=== PATIENT | female | born 1990 | race African-American/Black ===

== ENCOUNTER 2018-11-21 02:25 | Emergency (ER) | payer BC, SELFPAY ==
[2018-11-21 03:02] LABS: Pregu Control Background? CLEAR/WHITE (CLR/WHITE); Pregu Control Bar Appear? YES (CONTROL BAR); Specific Gravity 1.025 (1.002-1.036)
[2018-11-21 03:03] LABS: Pregnancy Test - Urine (BHCG) Negative (Negative)
[2018-11-21 03:07] LABS: #Basophils 0.1 thou/uL (0.0-0.2); #Eosinphils 0.2 thou/uL (0.0-0.7); #Lymphocytes 3.2 thou/uL (1.20-3.40); #Monocytes 0.6 thou/uL (0.11-0.59); #Neutrophils 6.3 thou/uL (1.40-6.50); %Basophils 1.3 % (0.0-1.0); %Eosinophils 1.8 % (0.0-10.0); %Monocytes 5.3 % (0.0-10.0); %Neutrophils 60.6 % (42.0-75.0); Hemoglobin 11.9 g/dL (12.0-16.0); Mean Corpuscular HGB CONC 31.5 g/dL (32.0-36.0); Mean Corpuscular Hemoglobin 26.1 pg (27.0-31.0); Mean Corpuscular Volume 82.8 fL (78.0-98.0); Mean Platelet Volume 8.8 fL (7.4-10.4); Platelet Count 229 thou/uL (130-400); RBC Distribution Width 14.4 % (11.5-14.5); Red Blood Cell (RBC) Count 4.58 mill/uL (4.20-5.40); White Blood Cell (WBC) Count 10.4 thou/uL (4.8-10.8)
[2018-11-21 03:19] LABS: ALT (SGPT) 15 U/L (8-55); AST (SGOT) 15 U/L (5-34); Albumin 4.1 g/dL (3.5-5.0); Alkaline Phosphatase 95 U/L (40-150); Anion Gap 13 mmol/L (10-20); BUN (Urea Nitrogen) 11 mg/dL (7.0-18.7); Bilirubin, Total 0.4 mg/dL (0.2-1.2); CK (CPK) 172 U/L (29-168); Calc. Creatinine Clearance 0 mL/min (70-130); Calcium 9.5 mg/dL (7.8-10.44); Carbon Dioxide 21 mmol/L (22-29); Chloride 108 mmol/L (98-107); Estimated GFR-MDRD Greater than 90; Globulin 3.3 g/dL (2.4-3.5); Glucose 96 mg/dL (70-105); Potassium 3.8 mmol/L (3.5-5.1); Protein, Total 7.4 g/dL (6.0-8.3); Sodium 138 mmol/L (136-145)
--- NOTE | 2018-11-21 08:24 | ULT ---
PRELIMINARY REPORT/[facility]/EMERGENTY AFTER-HOURS PROCEDURE US Left Duplex Lower Extremity Veins, Limited EXAM DATE/TIME: 11/21/2018 3:59 AM CLINICAL HISTORY: 28 years old, female; Pain; Other: Lt calf pain TECHNIQUE: Real-time Duplex ultrasound of the Left Lower Extremity with 2-D corbett scale, color Doppler flow and s pectral waveform analysis. Limited exam focused on the left lower extremity veins. COMPARISON: No relevant prior studies available. FINDINGS: Left deep veins: Unremarkable. The common femoral, femoral and popliteal veins are patent without thr ombus. Normal compressibility, augmentation response and Doppler waveforms. Left superficial veins: Unremarkable. Saphenofemoral junction is patent without thrombus. Soft tissues: Unremarkable. IMPRESSION: No acute findings. No evidence of deep vein thrombosis. Thank you for allowing us to participate in the care of your patient. Dictated and Authenticated by: Shan Ness MD 11/21/2018 5:00 AM Central Time ([place] & [place]) LEFT LOWER EXTREMITY VENOUS DOPPLER: History: Edema and pain. Comparison: None. Technique: Real-time grayscale, color doppler, and spectral analysis of the left lower extremity veno us system was performed. The common femoral, femoral, proximal portions of the greater saphenous deep femoral veins as well as the popliteal and posterior tibial veins were interrogated. FINDINGS: Normal flow, augmentation and compression. IMPRESSION: No deep venous thrombosis. POS: CET
== END 2018-11-21 04:35 | disposition home or self-care (01) ==
LOC: SCSER 02:25
DX: M79.605 Pain in left leg (principal)
CPT/HCPCS: 36415; 80053; 81025; 82550; 83735; 85025; 85379